=== PATIENT | male | born 1945 | race Caucasian/White ===

== ENCOUNTER → 2017-02-25 | Outpatient (CLI) | payer MEDICARE ==
[~2017-02-25] MED LIST: Iopamidol 370 76% 100 ML VIAL ONE
--- NOTE | 2017-02-25 13:19 | CT ---
CT ANGIO ABDOMEN AND PELVIS WITH AND WITHOUT CONTRAST: HISTORY: Abdominal aortic aneurysm without rupture. COMPARISON: CTA 05/28/15. FINDINGS: There is a small sebaceous cyst within the left anterior chest wall. No pericardial effusion. There are fibrotic changes in the lung bases, worse in the right lung base. Calcified granuloma is p resent in the left lower lobe. No nephroureteral lithiasis or hydroureteral nephrosis. No abnormal enhancing renal mass. The liver and gallbladder and spleen are unremarkable as well as p ancreas and adrenal glands. Normal rotation of the superior mesenteric artery and vein. Moderate narrowing of both hip joints. There is enlargement of the left L5 transverse process with a nomalous articulation with the sacrum. Osteoarthrosis of the lumbar spine. Moderate to severe degen erative disk space disease at L4-5 and L5-S1. A small nonenhancing cyst hepatic 4A. This is similar. There is an old left inferior pubic ramus fracture. VESSELS: No intramural hematoma. Using the same frame of reference, the infrarenal abdominal aorta just beyon d the level of the renal artery previously measured approximately 3.7 cm and now measures approximate ly 4.3 cm. This is for a length of approximately 3.4 cm. Distal to this, there is a fusiform aneury sm of the aorta measuring 9 cm in length to the level of the iliac bifurcation. This reaches a maxim um size of 4.5 cm and the previous maximum size was approximately 4 cm. The right common iliac arter y measures up to 1.6 cm and the left common iliac artery measures up to 1.6 cm. 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 There is a focal saccular ectasia of th e right common iliac artery measuring 1.9 cm. Bilateral common femoral and visualized portions of th e femoral arteries appear patent. No flow-limiting stenosis. No evidence of dissection. No penetrating atherosclerotic ulcer. Superior mesenteric arteries and celiac trunks were patent. 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 POS: C
== END ==
LOC: CT 14:07
PROVIDERS: ATTEND Thoracic Surgery (Cardiothoracic Vascular Surgery)
DX: I71.4 Abdominal aortic aneurysm, without rupture (principal)
CPT/HCPCS: 74174

== ENCOUNTER 2019-05-23 10:19 | Outpatient (CLI) | payer MEDICARE ==
--- NOTE | 2019-05-23 11:12 | CT ---
EXAM: CTA abdomen and pelvis HISTORY: Abdominal aortic aneurysm COMPARISON: 02/25/2017 TECHNIQUE: Multiple contiguous axial images were obtained a CTA of the abdomen and pelvis without and with contrast. Sagittal and coronal 3-D MIP reformats were performed. FINDINGS: LIVER: Unremarkable. GALLBLADDER: Unremarkable. KIDNEYS: Unremarkable. SPLEEN: Unremarkable. PANCREAS: Unremarkable. BOWEL: Scattered diverticula in the left colon.. RETROPERITONEUM: No lymphadenopathy ABDOMINAL WALL SOFT TISSUES: Unremarkable BONES: Degenerative changes in the spine. ABDOMINAL AORTA: Tortuous. There is an abdominal aortic aneurysm measuring 5.1 cm in greatest dimensi on in the infrarenal aorta. This aneurysm does not involve the common iliac arteries. CELIAC TRUNK: Patent SMA: Patent SWETA: Patent RENAL ARTERIES: Bilateral single renal arteries without significant atherosclerotic disease. A retroa ortic left renal vein is incidentally seen. IMPRESSION: Abdominal aortic aneurysm as above. This aneurysm appears to have enlarged compared to the prior exam ination.
[2019-05-23] MEDS ORDERED: Iopamidol-370 76% 500 ML 1 ML ONE (15:48)
== END 2019-05-23 10:20 | disposition home or self-care (01) ==
LOC: BICCT 10:19
PROVIDERS: ATTEND Thoracic Surgery (Cardiothoracic Vascular Surgery)
DX: I71.4 Abdominal aortic aneurysm, without rupture (principal)
CPT/HCPCS: 74174; 82565; Q9967

== ENCOUNTER 2019-06-10 07:29 | Outpatient (CLI) | payer MEDICARE ==
--- NOTE | 2019-06-10 13:29 | RAD ---
2 view chest: [06/10/2019] Comparison:None available HISTORY: Preoperative patient FINDINGS: Diffuse mild increased linear interstitial density noted with pulmonary hyperinflation. The heart and mediastinal contours are grossly unremarkable. There is atherosclerotic calcification the aortic arch. No pneumothorax, pleural fluid, lobar consolidation, or alveolar edema. Multilevel m id and lower thoracic spine disc space narrowing with degenerative endplate change and anterior osteophyte formation. IMPRESSION: Chronic findings as described above. No focal consolidation or alveolar edema.
--- NOTE | 2019-06-10 16:50 | EKG ---
Test Reason : Blood Pressure : / mmHG Vent. Rate : 074 BPM Atrial Rate : 074 BPM P-R Int : 166 ms QRS Dur : 092 ms QT Int : 390 ms P-R-T Axes : 066 055 064 degrees QTc Int : 432 ms Normal sinus rhythm Normal ECG When compared with ECG of 28-JAN-2008 18:50, No significant change was found Confirmed by DR. Renetta LIGHT ([id number]) on 06/10/2019 4:50:22 PM Referred By: ARASH Confirmed By:DR. Renetta LIGHT
== END 2019-06-10 07:30 | disposition home or self-care (01) ==
LOC: LABBT 07:29
PROVIDERS: ATTEND Family Medicine
DX: Z01.818 Encounter for other preprocedural examination (principal)
CPT/HCPCS: 71046; 93005; 93010

== ENCOUNTER 2019-06-10 12:30 | Inpatient (IN) | payer MEDICARE ==
[2019-06-10 12:29] VITALS: BMI 25.4
[2019-06-10 13:21] LABS: Mean Corpuscular HGB CONC 34.3 g/dL (32.0-36.0); Mean Corpuscular Hemoglobin 32.4 pg (27.0-31.0); Mean Corpuscular Volume 94.4 fL (78.0-98.0); Mean Platelet Volume 6.4 fL (7.4-10.4); Platelet Count 332 thou/uL (130-400); RBC Distribution Width 11.9 % (11.5-14.5); Red Blood Cell (RBC) Count 3.71 mill/uL (4.70-6.10); White Blood Cell (WBC) Count 6.4 thou/uL (4.8-10.8)
[2019-06-10 13:45] LABS: Anion Gap 11 mmol/L (10-20); BUN (Urea Nitrogen) 17 mg/dL (8.4-25.7); Calc. Creatinine Clearance 0 mL/min (70-130); Calcium 9.6 mg/dL (7.8-10.44); Carbon Dioxide 27 mmol/L (23-31); Chloride 106 mmol/L (98-107); Estimated GFR-MDRD 68; Glucose 105 mg/dL (83-110); Potassium 4.3 mmol/L (3.5-5.1); Sodium 140 mmol/L (136-145)
[2019-06-13] MEDS ORDERED: Fentanyl 250 MCG/5 ML VIAL ONE (06:13)
[2019-06-13] MEDS ORDERED: Heparin 10,000 UNITS/1 ML VIAL 30,000 UNITS in Sodium Chloride 0.9% 1,000 ML FS SCH (06:30)
[2019-06-13] MEDS ORDERED: EPINEPHrine 1 MG/ML AMP ONE (06:49)
[2019-06-13] MEDS ORDERED: Bupivacaine PF 0.5% 30 ML VIAL ONE (06:49)
[2019-06-13] MEDS ORDERED: Rocuronium Bromide 10 MG/ML (10ML VIAL) ONE (09:46)
[2019-06-13] MEDS ORDERED: Sodium Bicarb 50 MEQ/50 ML Abboject 8.4% SYRINGE ONE (09:46)
[2019-06-13] MEDS ORDERED: EPHEDRINE 25 MG/5 ML SYRINGE ONE (09:46)
[2019-06-13] MEDS ORDERED: PHENYLEPHRINE-NS 100 MCG/ML 10 ML SYRINGE ONE (09:46)
[2019-06-13] MEDS ORDERED: Heparin 5,000 UNITS/ML VIAL ONE (09:46)
[2019-06-13] MEDS ORDERED: Lidocaine 1% PF 5 ML VIAL ONE (09:46)
[2019-06-13] MEDS ORDERED: Ondansetron PF 4 MG/2 ML Vial ONE (09:46)
[2019-06-13] MEDS ORDERED: Dexamethasone 20 MG/5 ML VIAL ONE (09:46)
[2019-06-13] MEDS ORDERED: PROPOFOL 200 MG/20 ML VIAL ONE (09:46)
[2019-06-13] MEDS ORDERED: Glycopyrrolate 0.2 MG/ML 5 ML SYRINGE ONE (09:46)
[2019-06-13] MEDS ORDERED: Protamine Sulfate 250 MG/25 ML VIAL ONE (09:46)
[2019-06-13] MEDS ORDERED: Naloxone HCl 0.4 mg/ml Vial IV PRN (09:48)
[2019-06-13] MEDS ORDERED: Ondansetron PF 4 MG/2 ML Vial IVP PRN ×2 (09:48→11:06)
[2019-06-13] MEDS ORDERED: fentaNYL Citrate/PF 2,000 MCG in Sodium Chloride 0.9% 60 ML IV PRN (09:48)
[2019-06-13] MEDS ORDERED: Promethazine HCl 25 MG/ML VIAL IM PRN ×2 (09:48)
[2019-06-13] MEDS ORDERED: diphenhydrAMINE 50 MG/ML VIAL IM PRN (09:48)
[2019-06-13] MEDS ORDERED: Promethazine HCl 25 MG/ML VIAL SLOW IVP PRN (09:48)
[2019-06-13] MEDS ORDERED: diphenhydrAMINE 50 MG/ML VIAL IVP PRN (09:48)
[2019-06-13] MEDS ORDERED: Meperidine HCl/PF 25 MG/ML VIAL SLOW IVP PRN (09:48)
[2019-06-13] MEDS ORDERED: diphenhydrAMINE 25 MG CAP PO PRN (09:48)
[2019-06-13] MEDS ORDERED: Ondansetron HCl/PF 4 MG/2 ML Vial IVP PRN (09:48)
[2019-06-13] MEDS ORDERED: Zolpidem Tartrate 5 MG TAB PO PRN (09:48)
[2019-06-13] MEDS ORDERED: Communication Order-Pharmacy FS SCH (10:00)
[2019-06-13] MEDS ORDERED: Fentanyl 100 MCG/2 ML VIAL ONE ×2 (10:02→10:46)
--- NOTE | 2019-06-13 10:02 | OP ---
DATE OF PROCEDURE: 06/13/2019 PREOPERATIVE DIAGNOSIS: Abdominal aortic aneurysm. POSTOPERATIVE DIAGNOSIS: Abdominal aortic aneurysm. PROCEDURE PERFORMED: Open repair of abdominal aortic aneurysm with an 18-mm Hemashield tube graft. HAND COUNTER: Karson Julian MD ANESTHESIA: General endotracheal. ESTIMATED BLOOD LOSS: 800. Cell Saver returned is 534. DESCRIPTION OF PROCEDURE: After consent was obtained, the patient was brought to the operating room and placed in supine position on the operating room table. Appropriate central line and monitors were placed and general endotracheal anesthesia was induced. Abdomen was prepped and draped in usual sterile fashion. A midline abdominal incision was made and dissection down into the peritoneum obtained with electrocautery. Braggadocio and Bookwalter retractors were used for exposure. The omentum was brought down into the abdominal cavity and delivered superiorly. There was no mass in the colon. There were no gallstones. NG tube was in the stomach. The small bowel was delivered to the patient's right. Duodenum was dissected off the anterior surface of the aorta, releasing the ligament of Treitz. Aneurysm was exposed retroperitoneally throughout its extent. The patient was given 10,000 units of heparin. After 3 minutes, iliac arteries were clamped bilaterally. The aortic aneurysm neck was clamped. The SWETA was ligated. Aortic aneurysm was entered and opened for its full length. Four separate lumbar arteries were controlled with 0 silk suture. An 18-mm graft was selected and sewn in place proximally with running 3-0 Prolene suture. Anastomosis was tested and 2 separate interrupted sutures were placed for hemostasis. Graft was cut to appropriate length and sewn in place with running 3-0 Prolene suture distally. The arteries were back-bled and antegrade bled into the aneurysm sac prior to the distal suture line. The proximal clamp was released and hemostasis ensured our distal anastomosis. Each iliac clamp was serially released. Protamine was administered. Hemostasis was ensured. The aneurysm sac was closed over the graft with running 2-0 Vicryl suture. Aneurysm was Re retroperitonealized with running 2-0 Vicryl suture. The bowels were placed back in the anatomic position. The omentum was draped over the front of the incision. The incision was closed with running looped #1 PDS. The wounds were irrigated. A subcutaneous layer of Vicryl placed and the skin closed with clips. Sterile dressings were applied. The patient was awakened, extubated, and transferred to the recovery room in stable condition. Needle, sponge, and instrument counts were all reported as correct at the end of the procedure. Job ID: [id number]
[2019-06-13] MEDS ORDERED: Acetaminophen 325 MG TAB PO PRN (11:06)
[2019-06-13] MEDS ORDERED: HYDROcodone/Acetaminophen 5/325 mg Tablet PO PRN ×2 (11:06)
[2019-06-13] MEDS ORDERED: Morphine 4 MG/ML VIAL SLOW IVP PRN (11:06)
[2019-06-13] MEDS ORDERED: traMADol HCl 50 MG TAB PO PRN ×2 (11:06)
[2019-06-13] MEDS ORDERED: hydrALAZINE 20 MG/ML VIAL SLOW IVP PRN (11:06)
[2019-06-13] MEDS ORDERED: Morphine 2 MG/ML SYRINGE SLOW IVP PRN (11:06)
[2019-06-13] MEDS ORDERED: Fentanyl 100 MCG/2 ML VIAL SLOW IVP PRN ×2 (11:06)
[2019-06-13] MEDS: Sodium Chloride 0.9% 1,000 ML IV SCH ×2 (12:49→19:17)
[2019-06-13] MEDS: CEFAZOLIN 2 GM in Premix Bag 1 BAG IVPB SCH ×2 (15:42→23:03)
[2019-06-14] MEDS: Sodium Chloride 0.9% 1,000 ML IV SCH ×4 (03:10→23:24)
[2019-06-14 03:50] LABS: #Lymphocytes 1.2 thou/uL (1.20-3.40); #Monocytes 1.2 thou/uL (0.11-0.59); #Neutrophils 7.7 thou/uL (1.40-6.50); %Basophils 0.5 % (0.0-1.0); %Eosinophils 0.1 % (0.0-10.0); %Monocytes 11.8 % (0.0-10.0); %Neutrophils 75.6 % (42.0-75.0); Hemoglobin 10.3 g/dL (14.0-18.0); Mean Corpuscular HGB CONC 33.3 g/dL (32.0-36.0); Mean Corpuscular Hemoglobin 31.6 pg (27.0-31.0); Mean Corpuscular Volume 94.9 fL (78.0-98.0); Mean Platelet Volume 6.8 fL (7.4-10.4); Platelet Count 271 thou/uL (130-400); RBC Distribution Width 12.1 % (11.5-14.5); Red Blood Cell (RBC) Count 3.25 mill/uL (4.70-6.10); White Blood Cell (WBC) Count 10.2 thou/uL (4.8-10.8)
[2019-06-14 04:03] LABS: Anion Gap 9 mmol/L (10-20); BUN (Urea Nitrogen) 14 mg/dL (8.4-25.7); Calc. Creatinine Clearance 115 mL/min (70-130); Calcium 7.8 mg/dL (7.8-10.44); Carbon Dioxide 24 mmol/L (23-31); Chloride 111 mmol/L (98-107); Estimated GFR-MDRD Greater than 90; Glucose 107 mg/dL (83-110); Potassium 4.2 mmol/L (3.5-5.1); Sodium 140 mmol/L (136-145)
[2019-06-14] MEDS: CEFAZOLIN 2 GM in Premix Bag 1 BAG IVPB SCH (07:45)
[2019-06-14] MEDS: Aspirin Chewable 81 MG TAB PO SCH (07:50)
[2019-06-14] MEDS ORDERED: diphenhydrAMINE 25 MG CAP PO PRN (14:54)
[2019-06-14] MEDS ORDERED: Ondansetron PF 4 MG/2 ML Vial IVP PRN (14:54)
[2019-06-14] MEDS ORDERED: Zolpidem Tartrate 5 MG TAB PO PRN (14:54)
[2019-06-14] MEDS ORDERED: Promethazine HCl 25 MG/ML VIAL IM PRN (14:54)
[2019-06-14] MEDS ORDERED: diphenhydrAMINE 50 MG/ML VIAL IM/IV PRN (14:54)
[2019-06-14] MEDS ORDERED: Naloxone HCl 0.4 mg/ml Vial IV PRN (14:54)
[2019-06-14] MEDS: Ketorolac Tromethamine 30 MG/ML VIAL IVP SCH ×2 (16:28→23:16)
[2019-06-14] MEDS: Mag-Al 1200 mg/1200 mg/30 ML UDCUP PO PRN ×3 (16:52→20:42)
[2019-06-15 03:46] LABS: #Eosinphils 0.1 thou/uL (0.0-0.7); #Lymphocytes 2.2 thou/uL (1.20-3.40); #Monocytes 1.2 thou/uL (0.11-0.59); #Neutrophils 6.3 thou/uL (1.40-6.50); %Basophils 0.2 % (0.0-1.0); %Eosinophils 0.5 % (0.0-10.0); %Lymphocytes 22.5 % (21.0-51.0); %Monocytes 12.4 % (0.0-10.0); %Neutrophils 64.3 % (42.0-75.0); Hemoglobin 10.9 g/dL (14.0-18.0); Mean Corpuscular HGB CONC 33.5 g/dL (32.0-36.0); Mean Corpuscular Hemoglobin 31.9 pg (27.0-31.0); Mean Corpuscular Volume 95.2 fL (78.0-98.0); Mean Platelet Volume 7.1 fL (7.4-10.4); Platelet Count 279 thou/uL (130-400); RBC Distribution Width 11.9 % (11.5-14.5); Red Blood Cell (RBC) Count 3.43 mill/uL (4.70-6.10); White Blood Cell (WBC) Count 9.8 thou/uL (4.8-10.8)
[2019-06-15] MEDS: Ketorolac Tromethamine 30 MG/ML VIAL IVP SCH ×4 (05:15→23:14)
[2019-06-15] MEDS ORDERED: Fentanyl 100 MCG/2 ML VIAL SLOW IVP PRN (07:54)
[2019-06-15] MEDS ORDERED: traMADol HCl 50 MG TAB PO PRN (07:54)
[2019-06-15] MEDS: Aspirin Chewable 81 MG TAB PO SCH (08:21)
[2019-06-15] MEDS: traMADol HCl 50 MG TAB PO PRN (11:27)
[2019-06-16] MEDS: Ketorolac Tromethamine 30 MG/ML VIAL IVP SCH ×2 (06:33→11:47)
[2019-06-16] MEDS: Aspirin Chewable 81 MG TAB PO SCH (08:28)
[2019-06-16] MEDS: traMADol HCl 50 MG TAB PO PRN (20:00)
--- NOTE | 2019-06-17 07:26 | DIS ---
DATE OF ADMISSION: 06/13/2019 DATE OF DISCHARGE: 06/17/2019 DIAGNOSIS: Abdominal aortic aneurysm. PROCEDURE PERFORMED: Open abdominal aortic aneurysm repair with an 18-mm straight Hemashield graft. DESCRIPTION OF HOSPITAL STAY: Mr. Sanabria presented with an enlarging 5.5 cm abdominal aortic aneurysm, which had anatomy unsuitable for endovascular repair. He underwent open repair. He has had an unremarkable recovery. At the time of discharge, he is ambulatory, tolerating regular diet, and having good bowel and bladder function. Incision is clean and dry with anish intact. We will see him back in 2 weeks, take his anish out. He has been instructed not to do any heavy lifting or driving at the current time. DISCHARGE MEDICATIONS: Unchanged with the exception of the addition of tramadol 50 mg one p.o. q.6 hours p.r.n. pain. Job ID: [id number]
[2019-06-17] MEDS: Aspirin Chewable 81 MG TAB PO SCH (08:58)
[2019-06-17 10:29] VITALS: BP 129/81; TEMP 98.5
== END 2019-06-17 09:29 | disposition home or self-care (01) | DRG 272 ==
LOC: SURG A 06-13 05:40 → CCU 06-13 10:56 → 2NO 06-16 13:51
PROVIDERS: ADMIT Thoracic Surgery (Cardiothoracic Vascular Surgery); ATTEND Thoracic Surgery (Cardiothoracic Vascular Surgery)
PROC: 04V00DZ Restriction of Abdominal Aorta with Intraluminal Device, Open Approach (ICD-10-PCS; principal; 2019-06-13)
DX: I71.4 Abdominal aortic aneurysm, without rupture (principal); Z96.652 Presence of left artificial knee joint; Z90.49 Acquired absence of other specified parts of digestive tract
CPT/HCPCS: 36415; 36416; 71046; 80048; 85025; 85027; 86850; 86900; 86901; 93005; J0171; J0690; J1100; J1642; J1644; J1885; J2001; J2405; J2704; J2720; J3010; J3490; S0020

== ENCOUNTER 2022-08-20 13:05 | Outpatient (CLI) | payer OTHER | END 2022-08-20 13:06 | disposition home or self-care (01) | LOC: CT 13:05 | PROVIDERS: ATTEND Thoracic Surgery (Cardiothoracic Vascular Surgery) | DX: I71.40 Abdominal aortic aneurysm, without rupture, unspecified (principal); K57.30 Diverticulosis of large intestine without perforation or abscess without bleeding; Z98.890 Other specified postprocedural states | CPT/HCPCS: 74174; 82565; Q9967 ==